=== PATIENT | female | born 1965 | race Caucasian/White ===

== ENCOUNTER → 2016-12-09 | Outpatient (CLI) | payer MEDICAID ==
[~2016-12-09] MED LIST: CLON-364 PO; DILT240C PO; DOCU-30 PO; ENAL20TA PO; ENOX120S5 SQ; HYDR25TA6 PO; LEVO125T5 PO; LORA0.5T PO; ONDA8TAB16 SL; OXYC-229 PO; OXYGEN NAS; PERCOCET PO; RANI150T4 PO; WARF5TAB7 PO; [UNRECOGNIZED DRUG - OTHER] PO
== END | disposition home or self-care (01) ==
LOC: CVU 15:15
PROVIDERS: ATTEND Nurse Practitioner Family
DX: D35.5 Benign neoplasm of carotid body (principal)
CPT/HCPCS: 93880

== ENCOUNTER 2017-07-09 16:50 | Emergency (ER) | payer MEDICAID ==
[~2017-07-09] VITALS: Ht 167.6 cm; Wt 130.0 kg
[~2017-07-09 16:50] MED LIST changes: +DOCU-131 PO; -DOCU-30 PO; -OXYC-229 PO; +OXYC-307 PO
[2017-07-09 17:58] LABS: BASOPHILS # (AUTO) 0.07 x10^3/uL (0-0.1); BASOPHILS % (AUTO) 1 % (0-1); EOSINOPHILS # (AUTO) 0.19 x10^3/uL (0-0.4); EOSINOPHILS % (AUTO) 1 % (1-7); LYMPHOCYTES # (AUTO) 3.66 x10^3/uL (1-3.4); LYMPHOCYTES % (AUTO) 28 % (22-44); MD NO; MEAN CORPUSCULAR HEMOGLOBIN 27.8 pg (27.0-34.8); MEAN CORPUSCULAR HGB CONC 32.3 g/dL (32.4-35.8); MEAN CORPUSCULAR VOLUME 86.1 fL (80-100); MEAN PLATELET VOLUME 7.7 fL (7.4-10.4); MONOCYTES % (AUTO) 8 % (2-9); NEUTROPHILS # (AUTO) 8.34 x10^3/uL (1.8-6.8); NEUTROPHILS % (AUTO) 63 % (42-75); PLATELET COUNT 347 x10^3/uL (130-400); RED BLOOD COUNT 6.01 x10^6/uL (3.82-5.3); RED CELL DISTRIBUTION WIDTH 15.7 % (9.6-15.2)
[2017-07-09] MEDS ORDERED: ONDANSETRON 2MG/ML, 2ML IVPush ONE (18:00)
[2017-07-09] MEDS ORDERED: SODIUM CHLORIDE FLUSH 10ML SYR IVF ONE (18:00)
[2017-07-09 18:08] LABS: ALBUMIN 3.7 g/dL (3.4-5.0); ANION GAP 9 mmol/L (5-15); CALCIUM 9.4 mg/dL (8.5-10.1); CHLORIDE 96 mmol/L (98-107); CREATININE 0.96 mg/dL (0.55-1.02)
[2017-07-09 18:13] LABS: TROPONIN I < 0.015 ng/mL (0.000-0.045)
[2017-07-09 18:25] LABS: INTERNATIONAL NORMALIZED RATIO 6.27 (0.93-1.1); PROTHROMBIN TIME 62.9 Seconds (9.6-11.5)
[2017-07-09] MEDS ORDERED: ONDANSETRON 2MG/ML, 2ML ONE (18:31)
[2017-07-09] MEDS ORDERED: LEVOFLOXACIN 750 MG TABLET ONE (20:58)
[2017-07-09] MEDS ORDERED: LEVOFLOXACIN 750 MG TABLET PO ONE (21:00)
[2017-07-09 21:13] VITALS: BP 129/70
== END 2017-07-09 21:15 | disposition home or self-care (01) ==
LOC: ED 21:11
DX: R42 Dizziness and giddiness (principal); J32.3 Chronic sphenoidal sinusitis; J44.9 Chronic obstructive pulmonary disease, unspecified; I10 Essential (primary) hypertension; Z79.01 Long term (current) use of anticoagulants
CPT/HCPCS: 36415; 70450; 70498; 71045; 80048; 82040; 84484; 85025; 85610; 85730; 93005; 96374; 99285; J2405

== ENCOUNTER 2017-08-11 10:55 | Emergency (ER) | payer MEDICAID ==
[~2017-08-11] VITALS: Ht 167.6 cm; Wt 121.0 kg
[2017-08-11] MEDS ORDERED: TRAZ50TA18 PO (11:10)
[2017-08-11] MEDS ORDERED: SODIUM CHLORIDE 0.9% 1,000 ML IV ONE (11:14)
[2017-08-11] MEDS ORDERED: SODIUM CHLORIDE 0.9% 1,000ML IVBOLUS ONE (11:30)
[2017-08-11] MEDS ORDERED: SODIUM CHLORIDE FLUSH 10ML SYR IVF ONE (11:30)
[2017-08-11 11:37] LABS: BASOPHILS # (AUTO) 0.06 x10^3/uL (0-0.1); BASOPHILS % (AUTO) 1 % (0-1); EOSINOPHILS # (AUTO) 0.08 x10^3/uL (0-0.4); EOSINOPHILS % (AUTO) 1 % (1-7); LYMPHOCYTES # (AUTO) 1.89 x10^3/uL (1-3.4); LYMPHOCYTES % (AUTO) 16 % (22-44); MD NO; MEAN CORPUSCULAR HEMOGLOBIN 27.6 pg (27.0-34.8); MEAN CORPUSCULAR HGB CONC 32.6 g/dL (32.4-35.8); MEAN CORPUSCULAR VOLUME 84.8 fL (80-100); MEAN PLATELET VOLUME 8.2 fL (7.4-10.4); MONOCYTES # (AUTO) 0.86 x10^3/uL (0.2-0.8); MONOCYTES % (AUTO) 7 % (2-9); NEUTROPHILS # (AUTO) 9.29 x10^3/uL (1.8-6.8); NEUTROPHILS % (AUTO) 76 % (42-75); PLATELET COUNT 278 x10^3/uL (130-400); RED BLOOD COUNT 5.22 x10^6/uL (3.82-5.3); RED CELL DISTRIBUTION WIDTH 15.2 % (9.6-15.2)
[2017-08-11 11:46] LABS: PROTHROMBIN TIME 40.1 Seconds (9.6-11.5)
[2017-08-11 11:48] LABS: ALANINE AMINOTRANSFERASE 23 U/L (12-78); ALBUMIN 2.9 g/dL (3.4-5.0); ANION GAP 8 mmol/L (5-15); CALCIUM 8.2 mg/dL (8.5-10.1); CHLORIDE 101 mmol/L (98-107); CREATININE 0.77 mg/dL (0.55-1.02)
[2017-08-11 11:53] LABS: ALKALINE PHOSPHATASE 92 U/L (45-117); BILIRUBIN,TOTAL 0.5 mg/dL (0.2-1.0); FREE T4 (FREE THYROXINE) 1.54 ng/dL (0.76-1.46); TOTAL PROTEIN 6.4 g/dL (6.4-8.2)
[2017-08-11 11:57] LABS: THYROID STIMULATING HORMONE 0.105 mIU/L (0.358-3.740)
[2017-08-11] MEDS ORDERED: POTASSIUM CHLORIDE 20 MEQ TAB.ER.PRT PO ONE (13:30)
[2017-08-11 14:08] LABS: MICROSCOPIC NOT IND
[2017-08-11 14:21] LABS: CULTURE INDICATED? NO
[2017-08-11 14:44] VITALS: BP 113/65
[2017-08-11] MEDS ORDERED: POTASSIUM CHLORIDE 20 MEQ TAB.ER.PRT ONE (14:46)
== END 2017-08-11 14:46 | disposition home or self-care (01) ==
LOC: ED 11:18
DX: R07.89 Other chest pain (principal); I15.8 Other secondary hypertension; E87.6 Hypokalemia; Z87.891 Personal history of nicotine dependence; J44.9 Chronic obstructive pulmonary disease, unspecified
CPT/HCPCS: 36415; 74022; 80053; 81003; 83605; 83690; 83880; 84439; 84443; 84703; 85025; 85610; 85730; 93005; 96360; 96361; 99285; J7030